=== PATIENT | male | born 1965 ===

== ENCOUNTER 2024-03-19 13:05 | Outpatient (CLI) | payer OTHER, SELFPAY | END 2024-03-19 13:06 | disposition home or self-care (01) | PROVIDERS: Visit Provider Family Medicine | DX: I10 Essential (primary) hypertension (principal); K21.9 Gastro-esophageal reflux disease without esophagitis; Z13.6 Encounter for screening for cardiovascular disorders; Z12.5 Encounter for screening for malignant neoplasm of prostate | CPT/HCPCS: 80053; 80061; G0103 ==